=== PATIENT | male | born 1955 | race Caucasian/White ===

== ENCOUNTER 2018-06-06 12:59 | Emergency (ER) | payer OTHER ==
--- NOTE | 2018-06-06 13:25 | Emergency Department Record ---
History of Present Illness - General Chief Complaint: Abdominal Pain Stated Complaint: COMPLICATIONS FROM HERNIA Time Seen by Provider: 06/06/18 13:18 Source: Patient Mode of Arrival: Ambulatory Limitations: No limitations - History of Present Illness Initial Comments: 62 yo male presents with a concern about a possible ventral hernia at a site he had a feeding tube in 2014 after a trauma. For about 3 weeks he has had pain in that area. No nausea or vomiting. No changes in appetite. At times he can feel a nodule in that area. No fever. MD Complaint: Abdominal pain Onset/Timin -: Week(s) Radiation: None Migration to: No migration Severity: Moderate Severity scale (1-10): 6 Quality: Aching Improves With: Nothing Worsens With: Nothing Associated Symptoms: Denies other symptoms - Related Data Allergies Allergy/AdvReac Type Severity Reaction Status Date / Time No Known Drug Allergies Allergy Verified 06/06/18 13:14 Travel Screening - Travel/Exposure Within Last 30 Days Have you traveled within the last 30 days?: No Review of Systems Constitutional: Denies: Chills, Fever, Malaise, Weakness Eyes: Denies: Eye discharge ENT: Denies: Congestion, Throat pain Respiratory: Denies: Cough Cardiovascular: Denies: Chest pain, Syncope Endocrine: Denies: Fatigue Gastrointestinal: Reports: Abdominal pain. Denies: Diarrhea, Nausea, Vomiting Genitourinary: Denies: Dysuria, Frequency, Hematuria Musculoskeletal: Denies: Arthralgia, Back pain, Myalgia Skin: Denies: Bruising, Change in color Neurological: Denies: Headache Psychiatric: Denies: Anxiety Hematological/Lymphatic: Denies: Easy bleeding, Easy bruising Past Medical History - SOCIAL HISTORY Smoking Status: Former smoker Alcohol Use: Occasional Drug Use: None - RESPIRATORY Hx Respiratory Disorders: No - CARDIOVASCULAR Hx Cardio Disorders: Yes Hx Hypertension: Yes - NEURO Hx Neuro Disorders: No - GI Hx GI Disorders: No - Hx Genitourinary Disorders: No - ENDOCRINE Hx Endocrine Disorders: No - MUSCULOSKELETAL Hx Musculoskeletal Disorders: No - PSYCH Hx Psych Problems: Yes Hx Anxiety: Yes - HEMATOLOGY/ONCOLOGY Hx Hematology/Oncology Disorders: No Family Medical History Any Significant Family History?: No Physical Exam - General General Appearance: Alert, Oriented x3, Cooperative, No acute distress - Head Head exam: Atraumatic. negative: Normal inspection - Eye Eye exam: Normal appearance. negative: Conjunctival injection - ENT ENT exam: Normal exam, Mucous membranes moist Ear exam: Normal external inspection Nasal Exam: Normal inspection Mouth exam: Normal external inspection - Neck Neck exam: Normal inspection - Respiratory Respiratory exam: Normal lung sounds bilaterally. negative: Respiratory distress - Cardiovascular Cardiovascular Exam: Regular rate, Normal rhythm, Normal heart sounds - GI/Abdominal GI/Abdominal exam: Soft, Hernia (soft small reducible umbilical hernia, additionally tender ventral next to the prior surgical scar of the feeding tube , soft.) - Rectal Rectal exam: Deferred - exam: Deferred - Extremities Extremities exam: Normal inspection - Back Back exam: Denies: CVA tenderness (R), CVA tenderness (L) - Neurological Neurological exam: Alert, Oriented X3 - Psychiatric Psychiatric exam: Normal affect, Normal mood - Skin Skin exam: Dry, Intact, Normal color, Warm Course Vital Signs 06/06/18 13:08 Pulse Rate 75 Respiratory 20 Rate Blood Pressure 136/98 Pulse Ox 95 - Reevaluation(s) Reevaluation #1: 06/06/18 14:32 No acute changes on the labs 06/06/18 15:09 CT reviewed No larger hernia. Fatty liver. No acute process He was given the number for the [facility] for a new PCP. 06/06/18 15:19 No surgical emergency The patient was encourage to call the FP clinic at [facility] for a new family doctor and if future refers are needed then they can facilitate that. Medical Decision Making - Lab Data Result diagrams: 06/06/18 13:35 06/06/18 13:35 Disposition Disposition: Discharge Clinical Impression: Umbilical hernia Disposition: Home, Self-Care Condition: (1) Good Instructions: Umbilical Hernia (ED) Additional Instructions: You have been referred to the specialty surgery clinic for your hernia Return if you have uncontrolled pain, vomiting, fever or any new symptoms Referrals: [facility] Specialty Clinics [Provider Group] Antonio Cesar [DOCTOR OF OSTEOPATH] - NARA DEL RIO [MEDICAL DOCTOR] - Forms: Patient Portal Access Time of Disposition: 15:10 Quality - Quality Measures Quality Measures: N/A - Blood Pressure Screening Does Patient Have Any of the Following: No Blood Pressure Classification: Hypertensive Reading Systolic Measurement: 136 Diastolic Measurement: 98 Screening for High Blood Pressure: < Pre-Hypertensive BP, F/U Documented > [ [id number]] Pre-Hypertensive Follow-up Interventions: Referral to alternative/primary care provider.
[2018-06-06 13:56] LABS: BASO % 0.8 % (0-6); EOS % 5.3 % (0-6); GRAN % 55.1 % (47-80); HEMATOCRIT 43.4 % (42.0-52.0); HEMOGLOBIN 14.3 gm/dl (14.0-18.0); LYMPH % 31.2 % (16-45); MEAN CELL VOLUME 89.3 fl (81-97); MEAN CORPUSCULAR HEMOGLOBIN 29.4 pg (27-33); MEAN CORPUSCULAR HGB CONC 32.9 g/dl (32-36); MEAN PLATELET VOLUME 9.1 fl (7.4-10.4); MONO % 7.6 % (0-9); PLATELET COUNT 191 K/uL (130-400); RED BLOOD COUNT 4.86 M/uL (4.40-5.70); RED CELL DISTRIBUTION WIDTH 13.6 % (11.5-14.5); WHITE BLOOD COUNT W/O DIFF 5.1 K/uL (4.2-12.2)
[2018-06-06 14:00] LABS: BLOOD UREA NITROGEN 17 mg/dL (8-23); CREATININE 1.2 mg/dL (0.7-1.2); EST GLOMERULAR FILTRATION RATE > 60 mL/min
[2018-06-06 14:01] LABS: TOTAL PROTEIN 6.9 g/dL (6.6-8.7)
[2018-06-06 14:03] LABS: GLUCOSE,RANDOM 105 mg/dL (74-109)
[2018-06-06 14:06] LABS: ALB/GLOB RATIO 1.8 (1.1-1.8); ALBUMIN 4.4 g/dL (4.0-5.0); ALKALINE PHOSPHATASE 61 U/L (40-129); ALT/SGPT 52 U/L (<41); AST/SGOT 39 U/L (10.0-50.0)
--- NOTE | 2018-06-07 09:33 | CT SCAN REPORT ---
DATE: 06/06/2018. EXAM: CT OF THE ABDOMEN AND PELVIS WITH CONTRAST. HISTORY: ABDOMINAL PAIN. TECHNIQUE: Sequential axial images were obtained from the diaphragms through the ischiorectal fossa after intravenous and oral administration of 100 mL of Omnipaque 300 contrast material. Sagittal and coronal reformatted images were performed. FINDINGS: The visualized lung bases appear normal. The heart and pericardium appear normal. There is fatty infiltration of the liver. No gallstones or ductal dilatation. The pancreas and spleen appear normal. The adrenal glands and kidneys appear normal. The small bowel appears normal. The appendix is visualized and appears normal. The colon appears normal. There is incomplete distension of the urinary bladder versus circumferential wall thickening. The osseous structures are normal. IMPRESSION: 1. INCOMPLETE DISTENSION OF THE URINARY BLADDER VERSUS CIRCUMFERENTIAL WALL THICKENING. CORRELATION WITH URINALYSIS IS RECOMMENDED. 2. THE REMAINDER OF THE EXAMINATION IS UNREMARKABLE. JOB NUMBER: [id number] MTDD
== END 2018-06-06 15:31 | disposition home or self-care (01) ==
LOC: ER 12:59
DX: K42.9 Umbilical hernia without obstruction or gangrene (principal); I10 Essential (primary) hypertension; Z87.891 Personal history of nicotine dependence
CPT/HCPCS: 99284 ×2; 85025; 80053; 74177; Q9967

== ENCOUNTER 2018-08-11 08:15 | Day surgery (SDC) | payer SELFPAY ==
[~2018-08-11 08:15] MED LIST: ACETAMINOPHEN 1,000 MG/100 ML BTL IV ONE; CEFAZOLIN 2 Gram 2 GM/50 ML BAG IVPB ONE; FAMOTIDINE 20MG TABLET PO ONE; MECLIZINE 25 MG TABLET PO ONE; METOCLOPRAMIDE 10 MG TABLET PO ONE
[2018-08-11] MEDS ORDERED: KETOROLAC 30 MG/ML VIAL IVP ONE (08:16)
[2018-08-11] MEDS ORDERED: MIDAZOLAM HCL 2MG/2ML VIAL IV ONE (08:16)
[2018-08-11] MEDS ORDERED: DEXAMETHASONE 4 MG/ML 1ML VIAL IVP ONE (08:16)
[2018-08-11] MEDS ORDERED: SUCCINYLCHOLINE 20 MG/ML 10ML IVP ONE (08:16)
[2018-08-11] MEDS ORDERED: ONDANSETRON HCL IV 4 MG/2 ML VIAL IVP ONE (08:16)
[2018-08-11] MEDS ORDERED: PROPOFOL 10 MG/ML VIAL IV ONE (08:16)
[2018-08-11] MEDS ORDERED: LIDOCAINE 2% MDV (20MG/ML) 20ML VIAL IV ONE (08:16)
[2018-08-11] MEDS ORDERED: GLYCOPYRROLATE 0.2 MG/ML ML IV ONE (08:16)
[2018-08-11] MEDS ORDERED: ROCURONIUM BROMIDE 50MG/5ML VIAL IV ONE (08:16)
[2018-08-11] MEDS ORDERED: HYDROCODONE/APAP 5/325MG TABLET PO ONE (08:16)
[2018-08-11] MEDS ORDERED: NEOSTIGMINE 1 MG/1 ML,10ML VIAL IV ONE (08:16)
[2018-08-11] MEDS ORDERED: BUPIVACAINE 0.25% W/EPI MPF 30ML VIAL IVP ONE (08:16)
[2018-08-11] MEDS ORDERED: FENTANYL PF 100MCG/2ML VIAL IV ONE (08:16)
[2018-08-11] MEDS ORDERED: SEVOFLURANE 250 ML INH ONE (08:16)
--- NOTE | 2018-08-18 11:01 | Operative Note ---
DATE OF SURGERY: 08/11/2018 Surgeon: Antonio Cesar D.O. Referring physician: Sixto Whitney M.D. PREOPERATIVE DIAGNOSES: 1. Incarcerated umbilical hernia. 2. Cholelithiasis and chronic cholecystitis. POSTOPERATIVE DIAGNOSES: 1. Incarcerated umbilical hernia. 2. Cholelithiasis and chronic cholecystitis. OPERATION: Laparoscopic cholecystectomy. Anesthesia: General. Indication: The patient is a 63-year-old male who was having ongoing right subcostal post prandial pain. Gallbladder workup was consistent with chronic cholecystitis. He also had an incarcerated umbilical hernia. PROCEDURE: He was taken to the operating room and placed in the supine position. General anesthesia was administered per the Department of Anesthesia. The patient's abdomen was shaved of hair and prepped and draped in sterile fashion. An adequate timeout was performed. He did receive DT prophylaxis as well as preoperative antibiotic. At this time, the curvilinear supraumbilical region was anesthetized with a total of 5 mL of 0.25% Sensorcaine with epinephrine. A 3 cm curvilinear incision was made. This was carried down to the anterior rectus fascia. The umbilical stalk was encircled and back-tacked to reach an underlying hernia sac. This was then amputated and passed off the field. Clean circumferential fascial edges were obtained. Stay sutures of 0 Vicryl placed on the fascia. Through the hernia, a 10 mm blunt Danni port was placed. Adequate pneumoperitoneum was established. Under direct visualization, an additional 5 mm epigastric and two 5 mm right subcostal ports were placed. The gallbladder was identified. This was retracted in a cephalad and lateral direction, opening up the angle of Calot. The patient had also been rotated into reverse Trendelenburg position. The hepatocystic triangle was thoroughly dissected out. There was no aberrant anatomy, no posterior ductal structures. The cystic duct and cystic artery were clearly identified. Each one was doubly-clipped and cut in a standard fashion, the gallbladder was essentially peeled off the liver bed. This is placed into an EndoCatch bag and brought up through the umbilical port. The pneumoperitoneum was kept. An [address] mesh was obtained. This was placed into pertinent position under direct visualization with a 5 mm lens. At this time, the pneumoperitoneum was released. All ports removed. The upper skirt was sutured to the anterior rectus fascia with 2-0 Vicryl. The tails that overlapped the fascia were sutured in place as well. The skin was tacked back down with 3-0 and 4-0 Vicryl. The skin in all port sites were closed with 4-0 Vicryl. He was taken to the recovery room in satisfactory condition. FINDINGS AT THE TIME OF SURGERY: Chronic cholecystitis with incarcerated umbilical hernia, repaired as above. CC: Dr. Sixto GASTON
== END 2018-08-11 11:50 | disposition home or self-care (01) ==
LOC: SUR 08:15
PROVIDERS: ATTEND Surgery
DX: K80.10 Calculus of gallbladder with chronic cholecystitis without obstruction (principal); K42.0 Umbilical hernia with obstruction, without gangrene; I10 Essential (primary) hypertension; E78.00 Pure hypercholesterolemia, unspecified; I50.9 Heart failure, unspecified; Z93.0 Tracheostomy status
CPT/HCPCS: 47562; 00790; J1885; J2405; J3010; J0690; J0330; J2710

== ENCOUNTER 2018-09-05 08:01 | Day surgery (SDC) | payer SELFPAY ==
[2018-09-05] MEDS ORDERED: MIDAZOLAM HCL 2MG/2ML VIAL IV ONE (08:02)
[2018-09-05] MEDS ORDERED: PROPOFOL 10 MG/ML VIAL IV ONE (08:02)
[2018-09-05] MEDS ORDERED: LIDOCAINE 2% MDV (20MG/ML) 20ML VIAL IV ONE (08:02)
--- NOTE | 2018-09-08 15:30 | Operative Note ---
DATE OF SURGERY: 09/05/2018 SURGEON: Jono Gaona MD OPERATION: COLONOSCOPY. INDICATIONS: This is a 63-year-old male with history of average risk for colorectal cancer who presented for screening colonoscopy. POSTOPERATIVE DIAGNOSES: 1. Four 2-3 mm sessile polyps in the rectum that were removed by cold biopsy forceps. 2. Otherwise normal colonic and terminal ileal mucosa. ANESTHESIA: Sedation is per Anesthesia. Pulse oximetry was monitored throughout the procedure to maintain O2 saturation of 90% or greater. Supplemental oxygen was administered via nasal cannula. Cardiac and vital signs were monitored throughout the duration of the procedure, and they were stable. The procedure of colonoscopy and risks and alternatives of the procedure, including the risk of bleeding and perforation, among others, were explained to the patient who voiced understanding and agreed to have the procedure done. Physical examination was performed, and the patient was found stable for sedation. PROCEDURE: The patient was placed in the left lateral position. Sedation was initiated. A digital rectal exam was performed and showed some mild external hemorrhoids with no palpable rectal masses. An Olympus PCF-180AL colonoscope was then inserted into the rectum under direct visualization. It was advanced to the cecum without difficulty. The ileocecal valve and appendiceal orifice were identified and photographed. The colonic mucosa was carefully examined upon introduction of the colonoscope. There were no lesions noted. The ileocecal valve was intubated and terminal ileal mucosa was inspected for about 10 cm and it appeared normal. The colonoscope was then withdrawn while carefully examining the colonic mucosal surfaces. No lesions were noted. In the rectum, four 2-3 mm sessile polyps were noted and they were removed by cold biopsy forceps. Retroflexion revealed small internal hemorrhoids. The colonoscope was then withdrawn and the procedure was terminated. The patient tolerated the procedure well without any immediate complications. The patient remained with stable vital signs and was transferred to the recovery room. RECOMMENDATIONS: 1. The patient should be on a high-fiber diet. 2. The patient is to have a repeat colonoscopy for surveillance in 5 or 10 years depending on the histology of the polyps. Thank you for allowing me to participate in the care of your patient. CC: MD MARILIN Lucero
== END 2018-09-05 09:50 | disposition home or self-care (01) ==
LOC: HOP 08:01
PROVIDERS: ATTEND Internal Medicine Gastroenterology
DX: Z12.11 Encounter for screening for malignant neoplasm of colon (principal); K62.1 Rectal polyp; I10 Essential (primary) hypertension; E78.00 Pure hypercholesterolemia, unspecified